=== PATIENT | male | born 1960 | race Caucasian/White ===

== ENCOUNTER → 2016-10-13 | Day surgery (SDC) | payer OTHER ==
--- NOTE | 2016-10-12 21:19 | Pre-op HX & Phy Repo 2 SIG ---
DATE OF ADMISSION: 10/13/2016 DATE OF SURGERY: 10/13/2016. PREOPERATIVE DIAGNOSIS: Vitreous and subhyaloid hemorrhage left eye. BRIEF NOTE: This is the first [place] [facility] admission for this patient who is very nice 55-year-old gentleman with significant history of diabetic retinopathy, who developed loss of vision and was found to have a large subhyaloid hemorrhage in the left eye. PAST OCULAR HISTORY: Negative for surgery or laser. PAST MEDICAL HISTORY: Remarkable for diabetes since 1994. MEDICATIONS: He is maintained on insulin, Lipitor and atorvastatin. ALLERGIES: He has no known medical allergies. SOCIAL HISTORY: He does not smoke. PHYSICAL EXAMINATION: EYES: Best vision at the time of admission was 20/50 in the right eye, counting fingers at 2 feet in the left with pressures of 14. The anterior segments were quiet except for nuclear sclerosis. Fundus examination of the right eye showed disc neovascularization as well as diabetic macular edema and widespread areas of proliferative retinopathy. The left fundus showed disc neovascularization a large subhyaloid hemorrhage. Peripheral neovascularization was suspected as well. ASSESSMENT: Severe proliferative retinopathy both eyes with vitreous and subhyaloid hemorrhage in left eye. PLAN: The plan is to perform a pars plana vitrectomy with membrane dissection, evacuation of blood, Endolaser and Avastin injection on the left eye. The risks and benefits surgery gone over the patient with potential for infection, hemorrhage, glaucoma, remote possibility of loss of the eye. The risk of anesthesia was discussed. The patient understands and consents to the surgery, which will be performed on tomorrow morning. Ravi Bruno M.D. DR: DANA JOB#: [id number] CC:
[~2016-10-13] VITALS: Ht 190.5 cm; Wt 124.7 kg
[2016-10-13] VITALS (11 sets, daily range): BP systolic 140–175; BP diastolic 82–103
[~2016-10-13] MED LIST: ATORVASTATIN CA10 MG ORAL; ATORVASTATIN CA20 MG ORAL; Avastin 10mg Inj IVITRE ONE; BSS 15ml BTL ONE; BSS 500ml btl ONE; Bupivacaine 0.75% 30ml vial INJ ONE; Cyclopentolate 1% Opth Sol ONE; Dexamethasone 4mg/ml vial ONE; DiphenhydrAMINE 50mg/ml Inj IVP PRN; DiphenhydrAMINE 50mg/ml Inj ONE; EPINEPHrine 1mg/1ml Amp ONE; Flurbiprofen 0.03% Opth Sol 2.5ml ONE; Gatifloxacin Opth Solution 0.5% ONE; HUMALOG KW200 UNIT/1 SQ; Kenalog-10 5ml Inj ONE; LR 1000ml 1,000 ML IVLG SCH; LR 1000ml ONE; Labetalol 5mg/ml 20ml vial IV PRN; Lidocaine 1% MPF 10mg/ml 5ml ONE; Lidocaine 2% MPF 5ml Vial INJ ONE; Maxitrol Opth Oint 3.5gm ONE; Metoclopramide 10mg/2ml Inj IVP ONE; Metoclopramide 10mg/2ml Inj ONE; NS Irrig 1000ml ONE; Norco 5mg/325mg tab ORAL PRN; Phenylephrine 2.5% Op Soln ONE; Povidone-Iodine 5% opth solution ONE; Pred Forte 1% Opth Susp 1ml LEFT EYE ONE; Propofol 10mg/ml 20ml IV ONE; Sodium Hyaluronate 10 mg/ml 0.85ml ONE; Sterile Water Irrig 1000ml IRRIG ONE; Tetracaine 0.5% Opth Soln ONE
--- NOTE | 2016-10-13 06:08 | Pre-Procedure Note/Attestation ---
Pre-Procedure Note/Attestation Complete Prior to Procedure Planned Procedure: left Procedure Narrative: PPV, membrane peel, Kenalog injection, endolaser, Avastin injection L eye Indications for Procedure Pre-Operative Diagnosis: Vitreous and subhyaloid hemorrhage with traction L eye Attestation I attest that I discussed the nature of the procedure; its benefits; risks and complications; and alternatives (and the risks and benefits of such alternatives ), prior to the procedure, with the patient (or the patient's legal aircraft sales representative). I attest that, if there was a reasonable possibility of needing a blood transfusion, the patient (or the patient's legal aircraft sales representative) was given the [place] Department [employer] standardized written summary, pursuant to the Aron [place]imo Blood Safety Act ([place] Health and Safety Code # 1645, as amended). I attest that I re-evaluated the patient just prior to the surgery and that there has been no change in the patient's H&P, except as documented below: SAEID LA Oct 13, 2016 06:08
[2016-10-13] MEDS: Cyclopentolate 1% Opth Sol LEFT EYE SCH ×3 (07:46→08:04)
[2016-10-13] MEDS: Gatifloxacin Opth Solution 0.5% LEFT EYE SCH ×3 (07:46→08:04)
[2016-10-13] MEDS: Flurbiprofen 0.03% Opth Sol 2.5ml LEFT EYE SCH ×3 (07:46→08:04)
[2016-10-13] MEDS: Phenylephrine 2.5% Op Soln LEFT EYE SCH ×3 (07:46→08:04)
--- NOTE | 2016-10-13 07:52 | Anethesia Preoperative Eval ---
Anesthesia Pre-op PMH/ROS General Date of Evaluation: Oct 13, 2016 Anesthesiologist: Rashad ASA Score: ASA 3 Mallampati Score Class I : Soft palate, uvula, fauces, pillars visible Class II: Soft palate, uvula, fauces visible Class III: Soft palate, base of uvula visible Class IV: Only hard plate visible Mallampati Classification: Class III Surgeon: Damion Diagnosis: Left eye vitreal hemorrhage Surgical Procedure: Left eye vitrectomy Anesthesia History: none Family History: no anesthesia problems Allergies: Coded Allergies: No Known Allergies (Unverified , 10/12/16) Medications: see eMAR Past Medical History Cardiovascular: Reports: HTN, other - HLD, Denies: CAD, [place], arrhythmia, valve dz Pulmonary: Denies: COPD, JOHANA, asthma, other Gastrointestinal/Genitourinary: Reports: GERD, Denies: CRI, ESRD, other Neurologic/Psychiatric: Denies: CVA, TIA, dementia, depression/anxiety, other Endocrine: Reports: DM, Denies: hypothyroidism, other, steroids HEENT: Denies: [place] (L), [place] (R), cataract (L), cataract (R), glaucoma, other Hematology/Immune: Denies: DVT, anemia, bleeding disorder, other Musculoskeletal/Integumentary: Denies: DDD, DJD, OA, RA, edema, other Other: obesity - morbid PSxH Narrative: T&A, left knee sx Anesthesia Pre-op Phys. Exam Physician Exam see chart Constitutional: NAD Cardiovascular: RRR Respiratory: CTA Airway Exam Mallampati Score: Class III MO: limited ROM: limited Anesthesia Pre-op A/P Labs see chart Studies Pre-op Studies: EKG - sr Risk Assessment & Plan Assessment: ASA III Plan: MAC Status Change Before Surgery: No Pre-Antibiotics Drug: N/A ELIEZER BEGUM M.D. Oct 13, 2016 07:52
--- NOTE | 2016-10-13 08:02 | Immediate Post-Op Evaluation ---
Immediate Post-Op Evalulation Immediate Post-Op Evalulation Procedure: Left eye vitrectomy Date of Evaluation: Oct 13, 2016 Time of Evaluation: 10:33 IV Fluids: 500 Blood Products: 0 Estimated Blood Loss: 0 Urinary Output: 0 Blood Pressure Systolic: 175 Blood Pressure Diastolic: 95 Pulse Rate: 85 Respiratory Rate: 16 O2 Sat by Pulse Oximetry: 98 Temperature (Fahrenheit): 97.4 Pain Score (1-10): 0 Nausea: No Vomiting: No Complications 0 Patient Status: awake, reacts, patent, none Hydration Status: adequate Drug: N/A ELIEZER BEGUM M.D. Oct 13, 2016 08:02
--- NOTE | 2016-10-13 08:03 | 48 Hour Post Anesthesia Eval ---
Post Anesthesia Evaluation Procedure: Left eye vitrectomy Date of Evaluation: Oct 13, 2016 Blood Pressure Systolic: 173 0: 98 Pulse Rate: 82 Respiratory Rate: 16 Temperature (Fahrenheit): 97.4 O2 Sat by Pulse Oximetry: 98 Airway: patent Nausea: No Vomiting: No Pain Intensity: 0 Hydration Status: adequate Cardiopulmonary Status: at baseline Mental Status/LOC: patient returned to baseline Post-Anesthesia Complications: 0 Follow-up care needed: ready to discharge ELIEZER BEGUM M.D. Oct 13, 2016 08:03
[2016-10-13 08:08] LABS: BASOPHILS % (AUTO) 1.6 % (0.0-2.0); EOSINOPHILS % (AUTO) 2.3 % (0.0-3.0); LYMPHOCYTES % (AUTO) 27.1 % (20.0-45.0); MEAN CORPUSCULAR HEMOGLOBIN 31.1 PG (27.0-31.0); MEAN CORPUSCULAR HGB CONC 34.1 G/DL (32.0-36.0); MEAN CORPUSCULAR VOLUME 91 FL (80-99); MEAN PLATELET VOLUME 9.3 FL (6.5-10.1); MONOCYTES % (AUTO) 7.4 % (1.0-10.0); NEUTROPHILS % (AUTO) 61.7 % (45.0-75.0); PLATELET COUNT 275 K/UL (150-450); RED BLOOD COUNT 4.24 M/UL (4.70-6.10); RED CELL DISTRIBUTION WIDTH 11.4 % (11.6-14.8); WHITE BLOOD COUNT 7.6 K/UL (4.8-10.8)
[2016-10-13 08:11] LABS: CALCIUM 9.6 mg/dL (8.6-10.2); CREATININE 2.5 mg/dL (0.7-1.2); GLOMERULAR FILTRATION RATE 27.2 mL/min (>60); POTASSIUM 4.7 mEQ/L (3.4-4.9)
--- NOTE | 2016-10-13 10:46 | Brief Operative Note ---
Immediate Post Operative Note Operative Note Chief Complaint: Loss of central vision L eye Pre-op Diagnosis: Vitreous and subhyaloid hemorrhage with traction L eye Procedure: PPV, Membrane peel, endolaser 1866 spots, Kenalog injection, Avastin injection L eye Post-op Diagnosis: same as pre-op Surgeon: erin Anesthesiologist: Tommie Anesthesia: MAC Specimen: none Complications: none Condition: stable Estimated Blood Loss: none Drains: none Implant(s) used?: No SAEID LA Oct 13, 2016 10:46
--- NOTE | 2016-10-13 11:18 | Pre-op HX & Phy Repo 2 SIG ---
DATE OF ADMISSION: 10/13/2016 PRESURGICAL INTERNAL MEDICINE HISTORY AND PHYSICAL: REASON FOR EVALUATION: I was asked by Dr. Ravi Bruno M.D., to see this 54-year-old male who is going for elective surgery on the left eye. The patient has retinal hemorrhage, left eye. See full ophthalmology history and physical by Dr. Ravi Bruno. The patient was examined. Chart was reviewed. PAST MEDICAL HISTORY/REVIEW OF SYSTEMS: Remarkable for hypertension, type 1 insulin-dependent diabetes for the last 25 years, history of hyperlipidemia. Denies history of lung problem, asthma, or bronchitis. No history of gastritis, heartburn, or ulcer disease. No GI bleeding. Denied thyroid problem. No history of chest pain, palpitation, or heart attack. No history of stroke or seizures. Denies history of renal failure or prostate problem. PAST SURGICAL HISTORY: Right knee ligamentum and tonsillectomy. FAMILY HISTORY: Father from complication of stroke at age of 86 and mother from lung cancer. ALLERGIES: Not known. CURRENT MEDICATIONS: Include losartan, multivitamin, vitamin D3, iron. The patient is on Humalog sliding scale. The last injection was last evening of 4 units. SOCIAL HISTORY: Denies history of smoke or alcohol habit or street drugs. PHYSICAL EXAMINATION: GENERAL: The patient is alert, well-developed, well-nourished, overweight male in his 50s. The patient's weight 276 pounds and 6 feet 3 inches tall. VITAL SIGNS: Blood pressure 157/103, temperature 97.9, degrees, pulse 85, respirations 20, and O2 saturation 96% on room air. SKIN: Dry, warm, clear. No rashes. LYMPH NODES: Not enlarged. HEENT: Head normocephalic. Ears clear. Eyes, full description per Dr. Ravi Bruno M.D. Mouth clear and moist. No dentures. Tongue is in midline. NECK: Supple. Trachea midline. No jugular venous distention. CHEST: No deformity or asymmetry. Lungs clear. No rales or rhonchi. HEART: Sinus rhythm. Regular. No ectopy. No murmur, S3, or S4. ABDOMEN: Soft, obese. Liver and spleen are not enlarged. No palpable mass. EXTREMITIES: No edema. No varicose veins. No calf tenderness. GENITOURINARY TRACT: Denies dysuria. CVA nontender. NEUROLOGIC: No tremor. No nystagmus. No asymmetry. PSYCHIATRIC: Fully alert and oriented to time and place. LABORATORY AND DIAGNOSTIC DATA: ECG, normal sinus rhythm, 83 per minute, normal ECG. Fast blood sugar 136 mg/dL. The patient did not eat or drink from 10 p.m. yesterday. IMPRESSION: 1. Retinal hemorrhage, left eye. 2. Hypertension. 3. Type 1 diabetes mellitus, controlled. 4. Hyperlipidemia. 5. Obesity. PLAN: Pars plana vitrectomy, 23 G membrane peeling, left eye per Ravi Bruno M.D. CONCLUSION: The patient's EKG is normal. The patient's vital signs, slightly elevated systolic blood pressure. The patient is asymptomatic. He did not eat or drink from last night. The patient's condition optimized for surgery. Thank you very much, Tamar Burt M.D. DR: Lisa JOB#: [id number] CC:
--- NOTE | 2016-10-13 16:28 | Operative Note - Dictated ---
DATE OF OPERATION: 10/13/2016 PREOPERATIVE DIAGNOSIS: Vitreous hemorrhage with significant subhyaloidal blood left eye. POSTOPERATIVE DIAGNOSIS: Vitreous hemorrhage with significant subhyaloidal blood left eye. PROCEDURES: 1. Pars plana vitrectomy. 2. Membrane dissection. 3. Endolaser. 4. Kenalog injection. 5. Avastin injection left eye. SURGEON: Ravi Bruno M.D. GAMBLING COUNSELLOR: None. ANESTHESIA: Local sedation. ANESTHESIOLOGIST: Dr. Reilly. JUSTIFICATION FOR SURGERY: This 55-year-old gentleman with a long history of diabetes developed loss of central vision in the left eye associated with a dense vitreous and subhyaloidal hemorrhage. BRIEF NOTE: The patient brought to the operative room, placed on operating room table in supine position. After a time-out was performed and agreed upon by the staff, initial monitoring secured by Dr. Reilly, retrobulbar and Van Lint blocks given in standard way. When the blocks taken effect, he was prepped and draped in normal manner. A lid speculum inserted into the left eye. Using a 23-gauge trocar system, cannulas were placed in all except infranasal quadrant. Infusion secured inferotemporally. Vitrectomy was begun posterior to the lens taking care to avoid contact. A central core vitrectomy was performed followed by peripheral vitrectomy leaving a small vitreous skirt. A dense subhyaloidal hemorrhage was noted overlying the entire posterior pole. The vitreous was trimmed to the edges of the posterior pole and gently engaged on nasal aspect of the optic nerve. With this small area of elevation, there was a potential space to perform suction of blood off the surface of the retina using the vitreous cutter. Two areas of neovascularization and what appeared to be a possible macro aneurysm along the inferotemporal arcade and supratemporal arcades were seen. The larger area was gently dissected and a significant area of neovascularization which had emanated from the infratemporal vessel was removed. Blood on the surface of the retina was noted as well as a circular area of the subretinal blood which did not extend into the edge of the macula. This appeared to be fairly longstanding and partially clotted. A small area of bleeding on the surface of the infratemporal vessel was cauterized. Cautery was also used for a smaller area of neovascularization and clot along the supratemporal arcade. The macula itself was noted to be reasonably free of blood and without significant distortion. An area of neovascularization in the far supratemporal periphery was localized and cauterized. No additional bleeding was seen. Residual blood on the surface of the retina was gently aspirated with the edge of the vitreous cutter. The endolaser was then brought into the eye and a power of 0.3 titus, duration 0.2 seconds, a total of 1866 lesions were applied in a broad area peripherally extending from the equator out to the ora bobbi and at sites just inside of the equator. Scleral depression was done. No peripheral breaks, tears, or detachments were seen. Kenalog 1 mg had been used to identify vitreous membranes and this was evacuated. The superior cannulas were removed and these wounds noted to be self-sealing. The infusion line was broken down and through the infusion cannula 1.25 mg of Avastin was injected. The eye was reinflated and this cannula removed as well with the wound again noted to be self-sealing. Subconjunctival Decadron and gentamicin were then injected and Maxitrol and atropine ointments were instilled. The eye was patched and shielded. The patient taken to recovery in excellent condition. No complications. Ravi Bruno M.D. DR: Slim JOB#: [id number] CC: Ravi Bruno M.D.; Fax#: [phone] [facility] [place] [facility]
--- NOTE | 2016-10-17 18:22 | Cardiology Report ---
APPROVED REPORT EKG Measurement Heart [id number] Normal sinus rhythm Normal ECG
== END | disposition home or self-care (01) ==
LOC: SUR 06:13
DX: H43.12 Vitreous hemorrhage, left eye (principal); E10.3512 Type 1 diabetes mellitus with proliferative diabetic retinopathy with macular edema, left eye; Z79.4 Long term (current) use of insulin; I10 Essential (primary) hypertension; E78.5 Hyperlipidemia, unspecified; K21.9 Gastro-esophageal reflux disease without esophagitis; E66.9 Obesity, unspecified
CPT/HCPCS: 36415; 67043; 80048; 82962; 85025; 93005; J0171; J1100; J1200; J2405; J2704; J2765; J3301; J3470; J3490; J7120; 94003; 94150; J9035